=== PATIENT | male | born 1960 | race Caucasian/White ===

== ENCOUNTER 2022-02-04 21:38 | Emergency (ER) | payer BC ==
[2022-02-04 21:43] VITALS: BP 160/102; PULSE 108; RESP 15; TEMP 98.2
--- NOTE | 2022-02-04 21:56 | ED ---
Male Urogenital HPI - General Chief complaint: Urogenital Stated complaint: Cath clogged Time Seen by Provider: 02/04/22 21:52 Source: patient Mode of arrival: ambulatory - History of Present Illness Initial comments: This is a pleasant 61-year-old male who presents to emergency department after having a clogged Silverman catheter. Patient had a transurethral resection of the prostate done earlier today by Dr. Zamorano. Patient states he filled the Silverman catheter bag twice with blood tinged fluid. Patient denying any fever. Patient did have some pressure in the suprapubic area. Silverman catheter is replaced by the RN without difficulty. Denies any nausea or vomiting. No other symptomology. No headache, no fever or chills, no changes in vision or hearing, no sore throat or difficulty with speech, no neck pain, no chest pain or shortness of breath, no abdominal pain, no nausea or vomiting, no changes in bowel movements, no numbness or tingling, no extremity pain, no skin rashes or lesions. Review of Systems ROS Statement: Those systems with pertinent positive or pertinent negative responses have been documented in the HPI. ROS Other: All systems not noted in ROS Statement are negative. Past Medical History Past Medical History: No Reported History History of Any Multi-Drug Resistant Organisms: None Reported Additional Past Surgical History / Comment(s): TURP 02/04/22 Past Psychological History: No Psychological Hx Reported Smoking Status: Former smoker Past Alcohol Use History: None Reported Past Drug Use History: None Reported General Exam General appearance: alert, in no apparent distress Head exam: Present: atraumatic, normocephalic, normal inspection Eye exam: Present: normal appearance, PERRL, EOMI. Absent: scleral icterus, conjunctival injection, periorbital swelling ENT exam: Present: normal exam, mucous membranes moist Neck exam: Present: normal inspection. Absent: tenderness, meningismus, lymphadenopathy Respiratory exam: Present: normal lung sounds bilaterally. Absent: respiratory distress, wheezes, rales, rhonchi, stridor Cardiovascular Exam: Present: regular rate, normal rhythm, normal heart sounds. Absent: systolic murmur, diastolic murmur, rubs, gallop, clicks GI/Abdominal exam: Present: soft, normal bowel sounds. Absent: distended, tenderness, guarding, rebound, rigid Extremities exam: Present: normal inspection, full ROM, normal capillary refill. Absent: tenderness, pedal edema, joint swelling, calf tenderness Back exam: Present: normal inspection Neurological exam: Present: alert, oriented X3, CN II-XII intact Psychiatric exam: Present: normal affect, normal mood Skin exam: Present: warm, dry, intact, normal color. Absent: rash Course Vital Signs 02/04/22 21:39 Temperature 98.2 F Pulse Rate 108 H Respiratory 15 Rate Blood Pressure 160/102 O2 Sat by Pulse 95 Oximetry Medical Decision Making - Medical Decision Making Patient presented with a clogged Silverman catheter which was replaced here and is running fine. Patient essentially asymptomatic this time. No evidence of infectious process. In follow-up with his urologist. Patient was told to return to the ER for any signs or symptoms worsen. Told to return immediately if any other problems arise. All questions answered. Treatment plan discussed. Patient in agreement Every effort has been made to ensure accuracy of this dictation. However, due to the limitations of electronic medical records and dictation devices, errors in charting still occur. Reference Test Clerk Dr. Wilkes Disposition Clinical Impression: Postoperative urinary retention, Silverman catheter problem, Hypertension, poor control Disposition: HOME SELF-CARE Condition: Good Instructions (If sedation given, give patient instructions): Silverman Catheter Placement and Care (ED), Hypertension (ED) Additional Instructions: Follow-up with your regular physician as directed. Return to the ER immediately if any symptoms worsen, new symptoms arise, or any other problems develop. Follow-up with your regular physician regarding recheck of your blood pressure which was elevated today. Is patient prescribed a controlled substance at d/c from ED?: No Referrals: Riki Zamorano MD [STAFF PHYSICIAN] - 1-2 days Time of Disposition: 21:55
== END 2022-02-04 22:05 | disposition home or self-care (01) ==
LOC: EC 21:38
DX: T83.091A Other mechanical complication of indwelling urethral catheter, initial encounter (principal); N99.89 Other postprocedural complications and disorders of genitourinary system; I10 Essential (primary) hypertension; Z87.891 Personal history of nicotine dependence
CPT/HCPCS: 51702; 99283